=== PATIENT | male | born 1990 | race Two or more races ===

== ENCOUNTER 2025-07-14 20:27 | Emergency (ER) | payer MEDICAID, OTHER ==
[~2025-07-14] VITALS: Ht 172.7 cm; Wt 77.2 kg
[2025-07-14 20:27] VITALS: BP 135/72; PULSE 82; RESP 18; TEMP 98.9; O2SAT 98
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
--- NOTE | 2025-07-14 21:30 | DVH ---
CHEST RADIOGRAPH INDICATION: cough/weak TECHNIQUE: Single frontal view of the chest was obtained COMPARISON: None FINDINGS: Lines and Tubes: None Lungs: Metallic shrapnel across the upper right chest. Slight increased tissue density in the right lower lung field. This may represent overlying pectoral muscle. If of clinical concern recommend lateral chest x-ray or CT of the chest. Pleura: No effusion. No pneumothorax. Cardiomediastinal contours: Unremarkable Bones: No acute osseous abnormality. IMPRESSION: 1. Metallic shrapnel across the right upper lung field. 2. Slight Increased tissue density right lower lobe no prior studies for comparison. This may represent airspace disease or superimposed tissue density from the right pectoral muscle.
[2025-07-14 21:34] LABS: Hemoglobin 10.2 g/dL (13.5-17.5); Nucleated Red Blood Cells % 0.1 %
[2025-07-14 21:36] LABS: Hematocrit 30.9 % (41.0-53.0); Mean Corpuscular Hemoglobin 28.8 pg (28.0-32.0); Mean Corpuscular Volume 87.0 fL (80.0-100.0)
[2025-07-14 21:52] LABS: Alanine Aminotransferase 25 U/L (7-40); Albumin 3.9 g/dL (3.2-4.8); Anion Gap 7 (5-15); BUN/Creatinine Ratio 10.5 (10.0-20.0); Blood Urea Nitrogen 8 mg/dL (9-23); Calcium 9.3 mg/dL (8.7-10.4); Carbon Dioxide 25 mmol/L (20-31); Chloride 109 mmol/L (98-107); Glucose 98 mg/dL (74-106); Potassium 3.8 mmol/L (3.5-5.1); Sodium 141 mmol/L (136-145); Total Protein 7.3 g/dL (5.7-8.2)
[2025-07-14 21:53] LABS: Alkaline Phosphatase 137 U/L (46-116); Bilirubin, Total 0.3 mg/dL (0.2-1.0)
[2025-07-14 21:54] LABS: COVID19 ANTIGEN SOFIA FIA NEGATIVE (NEGATIVE)
[2025-07-14] MEDS ORDERED: SODIUM CHLORIDE 0.9% 1,000 ML IV ONE (22:45)
[2025-07-14 23:26] LABS: Urine Amorphous Crystal FEW /hpf (None Seen); Urine Protein, UAD Negative (Negative)
[2025-07-14 23:49] LABS: Amphetamine Screen, Urine Neg (NEGATIVE); Barbiturate Scree,Urine Neg (NEGATIVE); Benzodiazephine Screen, Urine Neg (NEGATIVE); Cannabinoid Screen, Urine Pos (NEGATIVE); Cocaine Screen, Urine Neg (NEGATIVE); Opiate Scree,Urine Neg (NEGATIVE); Phencyclidine Screen, Urine Neg (NEGATIVE)
== END 2025-07-14 23:20 | disposition home or self-care (01) ==
LOC: EDBD 20:27 → ER 20:27
DX: R05.9 Cough, unspecified (principal); R53.1 Weakness; Z20.822 Contact with and (suspected) exposure to COVID-19; Z79.899 Other long term (current) drug therapy
CPT/HCPCS: 36415; 71045; 80053; 80307; 81001; 83605; 85025; 87426; 87804